=== PATIENT | female | born 1945 | race Caucasian/White ===

== ENCOUNTER 2017-02-08 19:55 | Emergency (ER) | payer MEDICARE, BC ==
[~2017-02-08] VITALS: Ht 165.1 cm; Wt 77.1 kg
[~2017-02-08 19:55] MED LIST: ASPI81TA2 PO; ATOR10TA PO; DULO60CA63 PO; Docusate Sodium PO; FERR325T28 PO; GABA300C PO; HYDR-3652 PO; LAMO100T2 PO; LISI40TA4 PO; MV,C400T2 PO; OMEP20CA10 PO; ROPI0.5T2 PO; ROPI4TAB4 PO
--- NOTE | 2017-02-08 20:10 | NUR ---
To bed 8 a 71 yo female bibself with c/o left foot pain/ swelling x 1 day. Per patient pain with prickling sensation is at 10/10, aggravated with ambulation, denies trauma. Gowned patient. Awaiting for er md lambert.
--- NOTE | 2017-02-08 21:03 | NUR ---
followed up with radiology for [facility].
--- NOTE | 2017-02-08 22:01 | NUR ---
dPatient discharged to home in stable condition. Written and verbal after care instructions given. Patient verbalizes understanding of instruction. No further complaints. Patient requested to be wheeled to waiting room as her friend is coming to pick her up.
[2017-02-08 22:02] VITALS: BP 146/68
== END 2017-02-08 22:03 | disposition home or self-care (01) ==
LOC: ER 19:57
DX: L03.116 Cellulitis of left lower limb (principal); I42.9 Cardiomyopathy, unspecified; I10 Essential (primary) hypertension; G91.9 Hydrocephalus, unspecified; M79.89 Other specified soft tissue disorders; Z79.82 Long term (current) use of aspirin; Z88.0 Allergy status to penicillin; Z88.2 Allergy status to sulfonamides
CPT/HCPCS: 73630-TC; 93971-TC; A4606; Z7610

== ENCOUNTER 2017-02-12 14:02 | Emergency (ER) | payer MEDICARE, BC ==
[~2017-02-12] VITALS: Ht 165.1 cm; Wt 77.1 kg
--- NOTE | 2017-02-12 14:09 | NUR ---
bIB self for worsening ble edema and redness, patient was started on atb last . However, per patient's observation, its not gettiing any better. Patient unable to bear weight on left foot due to pain,. Skin is warm to touch and non diaphoretic. Patient afebrile;, Will cont to monitor
--- NOTE | 2017-02-12 14:27 | NUR ---
MD Zhu at
[2017-02-12 14:52] LABS: BASOPHILS % (AUTO) 0.2 % (0.0-2.0); EOSINOPHILS # (AUTO) 0.2 /CMM (0.0-0.7); EOSINOPHILS % (AUTO) 2.7 % (0.0-6.0); HEMATOCRIT 36 % (33-45); HEMOGLOBIN 12.2 g/dL (11.5-14.8); LYMPHOCYTES # (AUTO) 1.5 /CMM (0.8-4.8); LYMPHOCYTES % (AUTO) 21.9 % (20.0-44.0); MEAN CORPUSCULAR HEMOGLOBIN 29 PG (26.0-33.0); MEAN CORPUSCULAR HGB CONC 34 g/dl (31.0-36.0); MEAN CORPUSCULAR VOLUME 85 fL (82-100); MONOCYTES # (AUTO) 0.5 /CMM (0.1-1.30); MONOCYTES % (AUTO) 7.3 % (2.0-12.0); NEUTROPHILS # (AUTO) 4.6 /CMM (1.8-8.9); NEUTROPHILS % (AUTO) 67.9 % (43.0-81.0); PLATELET COUNT (AUTO) 272 /CMM (150-450); RDW COEFFICIENT OF VARIATION 14.5 (11.5-15.0); RED BLOOD CELL COUNT(AUTO) 4.27 MIL/uL (4.0-5.2); WHITE BLOOD COUNT (AUTO) 6.8 K/uL (4.3-11.0)
--- NOTE | 2017-02-12 14:55 | NUR ---
CALLED RT FOR BREATHING TREATMENT
[2017-02-12] MEDS ORDERED: ALBUTEROL FS 2.5 MG/3 ML VIAL.NEB ONE (14:56)
[2017-02-12 14:59] LABS: ALBUMIN 3.5 g/dL (3.4-5.0); BILIRUBIN,DIRECT 0.1 mg/dL (0.0-0.2); BILIRUBIN,TOTAL 0.3 mg/dL (0.2-1.0); CALCIUM, SERUM 9.4 mg/dL (8.5-10.1); POTASSIUM 3.4 mmol/L (3.5-5.1); TOTAL PROTEIN, SERUM 6.9 g/dL (6.4-8.2)
[2017-02-12] MEDS ORDERED: predniSONE 20 MG TABLET ONE (14:59)
[2017-02-12] MEDS ORDERED: ALBUTEROL FS 2.5 MG/3 ML VIAL.NEB NEB ONE (15:00)
[2017-02-12] MEDS ORDERED: predniSONE 20 MG TABLET PO ONE (15:00)
--- NOTE | 2017-02-12 16:41 | NUR ---
Patient discharged to home in stable condition. Written and verbal after care instructions given. Patient verbalizes understanding of instruction.
[2017-02-12 16:47] VITALS: BP 145/75
== END 2017-02-12 16:47 | disposition home or self-care (01) ==
LOC: ER 14:04
DX: R60.0 Localized edema (principal); M79.672 Pain in left foot; I10 Essential (primary) hypertension; I42.9 Cardiomyopathy, unspecified; G91.9 Hydrocephalus, unspecified; Z88.0 Allergy status to penicillin; Z88.2 Allergy status to sulfonamides; Z79.82 Long term (current) use of aspirin
CPT/HCPCS: 36415; 71010; 80048; 80076; 84550; 85025; 94640; 99285; A4606; J7512; Z7610

== ENCOUNTER 2017-10-20 08:23 | Emergency (ER) | payer MEDICARE, BC ==
[~2017-10-20] VITALS: Ht 160 cm; Wt 74.8 kg
[2017-10-20 08:51] VITALS: BP 131/60
[2017-10-20] MEDS ORDERED: TRAMADOL HCL 50 MG TABLET PO ONE (09:00)
[2017-10-20] MEDS ORDERED: TRAMADOL HCL 50 MG TABLET ONE (09:01)
== END 2017-10-20 10:38 | disposition home or self-care (01) ==
LOC: ER 08:25
DX: M79.671 Pain in right foot (principal); I10 Essential (primary) hypertension; Z88.0 Allergy status to penicillin; Z88.2 Allergy status to sulfonamides; Z79.82 Long term (current) use of aspirin
CPT/HCPCS: 73610-TC; 73630-TC; A4606; Z7610

== ENCOUNTER 2018-12-30 17:28 | Emergency (ER) | payer MEDICARE, BC ==
[~2018-12-30 17:28] MED LIST changes: +ASPI-1169 PO; -ASPI81TA2 PO; -HYDR-3652 PO; +HYDR-4303 PO; -ROPI4TAB4 PO; +ROPI4TAB6 PO
--- NOTE | 2018-12-30 18:57 | NUR ---
called for triage not in the room.
--- NOTE | 2018-12-30 19:13 | NUR ---
called for triage not in the waiting room.
[2019-02-12] MEDS ORDERED: METO25TA20 PO (16:35)
== END 2018-12-30 19:20 | disposition left against medical advice (07) ==
LOC: ER 17:35
DX: Z53.21 Procedure and treatment not carried out due to patient leaving prior to being seen by health care provider (principal)

== ENCOUNTER 2019-01-22 13:43 | Emergency (ER) | payer MEDICARE, BC ==
[~2019-01-22] VITALS: Ht 165.1 cm; Wt 74.8 kg
[2019-01-22 13:43] VITALS: BP 161/114
[2019-01-22] MEDS ORDERED: KETOROLAC TROMETHAMINE INJ 30 MG/ML VIAL ONE (14:18)
[2019-01-22] MEDS ORDERED: LIDOCAINE VISCOUS 2% UD 15 ML UDC ONE (14:18)
[2019-01-22] MEDS ORDERED: KETOROLAC TROMETHAMINE INJ 60 MG/2 ML VIAL IM ONE (14:30)
[2019-01-22] MEDS ORDERED: LIDOCAINE VISCOUS 2% UD 15 ML UDC MM ONE (14:30)
--- NOTE | 2019-01-22 15:55 | NUR ---
Patient discharged to home in stable condition. Written and verbal after care instructions given. Patient verbalizes understanding of instruction.
[2019-02-12] MEDS ORDERED: METO25TA20 PO (16:35)
== END 2019-01-22 15:56 | disposition home or self-care (01) ==
LOC: ER 13:48
DX: K14.0 Glossitis (principal); G25.81 Restless legs syndrome; F31.9 Bipolar disorder, unspecified; G91.9 Hydrocephalus, unspecified; Z98.890 Other specified postprocedural states; Z88.0 Allergy status to penicillin; Z88.2 Allergy status to sulfonamides; Z79.82 Long term (current) use of aspirin
CPT/HCPCS: 96372; 99283; A4606; J1885

== ENCOUNTER 2019-02-10 16:09 | Inpatient (IN) | payer MEDICARE, BC ==
[~2019-02-10] VITALS: Ht 165.1 cm; Wt 75.0 kg
--- NOTE | 2019-02-10 16:27 | NUR ---
C/O CP 1 HOUR PRIOR ARRIVAL, "FEELS LIKE SOMEONE SITTING ON MY CHEST". PAIN FELT ON MOVEMENT, FEELS OK WITH SITTING STILL. SKIN INTACT, NO ACUTE DISTRESS NOTED. STATES HAVING SOME SOB, BUT SATTING AT 98%. HOOKED TO MONITOR, READY FOR EVAL.
[2019-02-10] MEDS ORDERED: MORPHINE SULFATE INJ 4 MG/ML DISP.SYRIN ONE (16:42)
[2019-02-10] MEDS ORDERED: NITROGLYCERIN 0.4 MG/TAB BOTTLE ONE (16:42)
[2019-02-10] MEDS ORDERED: ONDANSETRON HCL/PF 4 MG/2 ML VIAL ONE (16:42)
[2019-02-10] MEDS ORDERED: ASPIRIN 81 MG TAB.CHEW ONE (16:43)
[2019-02-10 16:50] LABS: BASOPHILS # (AUTO) 0.1 /CMM (0.0-0.2); BASOPHILS % (AUTO) 0.6 % (0.0-2.0); EOSINOPHILS % (AUTO) 1.4 % (0.0-6.0); HEMATOCRIT 42 % (33-45); HEMOGLOBIN 13.9 g/dL (11.5-14.8); LYMPHOCYTES # (AUTO) 2.1 /CMM (0.8-4.8); MEAN CORPUSCULAR HGB CONC 34 g/dl (31.0-36.0); MEAN CORPUSCULAR VOLUME 95 fL (82-100); MONOCYTES # (AUTO) 0.7 /CMM (0.1-1.30); MONOCYTES % (AUTO) 7.7 % (2.0-12.0); NEUTROPHILS # (AUTO) 5.6 /CMM (1.8-8.9); NEUTROPHILS % (AUTO) 65.3 % (43.0-81.0); PLATELET COUNT (AUTO) 317 /CMM (150-450); RED BLOOD CELL COUNT(AUTO) 4.36 MIL/uL (4.0-5.2); WHITE BLOOD COUNT (AUTO) 8.6 K/uL (4.3-11.0)
[2019-02-10 16:59] LABS: CALCIUM, SERUM 10.1 mg/dL (8.5-10.1); CARBON DIOXIDE 30 mmol/L (21-32); CHLORIDE 103 mmol/L (98-107); GLUCOSE 99 mg/dL (74-106); SODIUM SERUM 140 mmol/L (136-145); UREA NITROGEN, BLOOD 27 mg/dL (7-18)
[2019-02-10] MEDS ORDERED: NITROGLYCERIN 0.4 MG/TAB BOTTLE SL ONE (17:00)
[2019-02-10] MEDS ORDERED: MORPHINE SULFATE INJ 2 MG/ML DISP.SYRIN IV ONE (17:00)
[2019-02-10] MEDS ORDERED: ONDANSETRON HCL/PF 4 MG/2 ML VIAL IVP ONE (17:00)
[2019-02-10] MEDS ORDERED: ASPIRIN 81 MG TAB.CHEW PO ONE (17:00)
--- NOTE | 2019-02-10 17:43 | NUR ---
CALLED NURSING SUP. FOR TELE BED
--- NOTE | 2019-02-10 18:14 | NUR ---
Patient is resting comfortably in bed, NO COMPLAINTS AT THIS TIME. Easily aroused. VSS. WILL CONT TO MONITOR.
[2019-02-10] MEDS ORDERED: IV NS 0.9% 1,000 ML IV PRN (18:20)
[2019-02-10] MEDS ORDERED: MAGNESIUM HYDROXIDE 30 ML UDC PO PRN (18:30)
[2019-02-10] MEDS ORDERED: ONDANSETRON HCL/PF 4 MG/2 ML VIAL IVP PRN (18:30)
[2019-02-10] MEDS ORDERED: Z GUARD REMEDY 2 OZ OINT TP PRN (18:30)
[2019-02-10] MEDS ORDERED: ACETAMINOPHEN 325 MG TABLET PO PRN (18:30)
[2019-02-10] MEDS ORDERED: HYDROCODONE/APAP 5/325MG 1 EACH TABLET PO PRN (18:30)
--- NOTE | 2019-02-10 18:55 | NUR ---
REPORT GIVEN TO MARIAH FOR 116-2 TELE
--- NOTE | 2019-02-10 19:13 | NUR ---
[facility]
[2019-02-10 20:00] VITALS: BP 137/88
[2019-02-10] MEDS: ENOXAPARIN SODIUM 40 MG/0.4 ML DISP.SYRIN SQ SCH (20:00)
[2019-02-10] MEDS ORDERED: DOCU100C36 PO (20:08)
[2019-02-10] MEDS ORDERED: SENN-168 PO (20:08)
[2019-02-10] MEDS ORDERED: POTA-10 PO (20:08)
[2019-02-10] MEDS ORDERED: MULT-1160 PO (20:08)
[2019-02-10] MEDS ORDERED: BENZ200C53 PO (20:08)
[2019-02-10] MEDS: ropiniROLE 0.5 MG TABLET PO SCH (20:42)
[2019-02-10] MEDS: GABAPENTIN 300 MG CAPSULE PO SCH (20:42)
[2019-02-10] MEDS: LamoTRIgine 100 MG TABLET PO SCH (20:42)
[2019-02-10] MEDS: DOCUSATE SODIUM 100 MG CAPSULE PO SCH (21:06)
[2019-02-10] MEDS: ATORVASTATIN 10 MG TABLET PO SCH (21:06)
[2019-02-10] MEDS: SENNOSIDES 8.6 MG TABLET PO SCH (21:06)
[2019-02-10] MEDS: MAG HYDROX/AL HYDROX/SIMETH 30 ML UDC PO PRN (21:35)
[2019-02-10] MEDS ORDERED: ropiniROLE 0.5 MG TABLET PO SCH (22:00)
[2019-02-11] VITALS: BP 140/74
[2019-02-11 04:00] VITALS: BP 139/77
[2019-02-11 06:21] LABS: CALCIUM, SERUM 9.2 mg/dL (8.5-10.1); CARBON DIOXIDE 30 mmol/L (21-32); CHLORIDE 107 mmol/L (98-107); CHOLESTEROL 204 mg/dL (<200); GLUCOSE 103 mg/dL (74-106); HDL CHOLESTEROL 66 mg/dL (40-60); LDL 121 mg/dL (0-99); MAGNESIUM 2.4 mg/dL (1.8-2.4); PHOSPHORUS 4.2 mg/dL (2.5-4.9); POTASSIUM 4.3 mmol/L (3.5-5.1); SODIUM SERUM 143 mmol/L (136-145); THYROID STIMULATING HORMONE 2.194 uIU/mL (0.358-3.74); TRIGLYCERIDES 103 mg/dL (30-150); UREA NITROGEN, BLOOD 29 mg/dL (7-18)
[2019-02-11 07:11] LABS: BASOPHILS % (AUTO) 0.5 % (0.0-2.0); HEMATOCRIT 39 % (33-45); HEMOGLOBIN 13.1 g/dL (11.5-14.8); LYMPHOCYTES # (AUTO) 1.9 /CMM (0.8-4.8); LYMPHOCYTES % (AUTO) 34.3 % (20.0-44.0); MEAN CORPUSCULAR HGB CONC 34 g/dl (31.0-36.0); MEAN CORPUSCULAR VOLUME 96 fL (82-100); MONOCYTES # (AUTO) 0.5 /CMM (0.1-1.30); MONOCYTES % (AUTO) 8.7 % (2.0-12.0); NEUTROPHILS # (AUTO) 2.9 /CMM (1.8-8.9); NEUTROPHILS % (AUTO) 53.5 % (43.0-81.0); PLATELET COUNT (AUTO) 284 /CMM (150-450); RED BLOOD CELL COUNT(AUTO) 4.06 MIL/uL (4.0-5.2); WHITE BLOOD COUNT (AUTO) 5.4 K/uL (4.3-11.0)
--- NOTE | 2019-02-11 07:20 | NUR ---
RN OPENING NOTES RECEIVED PATIENT IN BED AWAKE AND ALERT. CAME IN YESTERDAY DUE TO CHEST PAIN. NO COMPLAINS OF ANY PAIN AND SOB AT THIS TIME. ON TELE MONITOR SINUS RHYTHM. HAS A BEDSIDE COMMODE, NEEDS ASSISTANCE. HAS A LEFT AC #20 WITH NS RUNNING AT 50 ML/HR. PER NOC SHIFT NURSE, PATIENT HAS A CARDIO CONSULT WITH DR. ARAIZA. BED LOCKED AND IN LOW POSITION. CALL LIGHT WITHIN REACH. WILL CONTINUE TO MONITOR
[2019-02-11] MEDS ORDERED: PANTOPRAZOLE 40 MG TABLET.DR PO SCH (07:30)
[2019-02-11 08:00] VITALS: BP 128/78
[2019-02-11] MEDS: PANTOPRAZOLE 40 MG TABLET.DR PO SCH ×2 (08:23→16:27)
[2019-02-11] MEDS: ASPIRIN 325 MG TABLET PO SCH (08:23)
[2019-02-11] MEDS: LamoTRIgine 100 MG TABLET PO SCH ×2 (08:23→16:27)
[2019-02-11] MEDS: LISINOPRIL (20MG) 20 MG TABLET PO SCH (08:24)
[2019-02-11] MEDS: FERROUS SULFATE (325 MG) 325 MG/TAB TABLET PO SCH (08:24)
[2019-02-11] MEDS: DULOXETINE HCL 30 MG CAPSULE.DR PO SCH (08:24)
[2019-02-11] MEDS: GABAPENTIN 300 MG CAPSULE PO SCH ×4 (08:24→21:27)
[2019-02-11] MEDS: ropiniROLE 0.5 MG TABLET PO SCH ×4 (08:25→21:27)
--- NOTE | 2019-02-11 08:45 | NUR ---
WOUND CARE CONSULT: PT PRESENTS WITH INTACT SKIN, SOME DRY ABRASIONS AND SCRATCHES, PRESENT ON ADMISSION. PT IS CONTINENT AND INDEPENDENT WITH BED MOBILITY. PT STATES HAS HAD ITCHING UNDER HER BREASTS AND USES A CREAM AT HOME. RECOMMENDATIONS MADE FOR BREASTFOLD ITCHING AND DRY SKIN TO LEGS. DISCUSSED WITH NURSING STAFF. WILL SEE PRN. ROCHA IN AGREEMENT WITH PLAN OF CARE. CURRENT KEN SCORE IS 18. Addendum: 02/11/19 at 0848 by MIC COOPER WNDNU Amended: Links added.
[2019-02-11] MEDS ORDERED: DOCUSATE SODIUM 250 MG PO SCH (09:00)
[2019-02-11] MEDS ORDERED: ASPIRIN 81 MG TAB.CHEW PO SCH (09:00)
[2019-02-11] MEDS: MINERAL OIL/PETROLATUM,WHITE 120 GM JAR TP PRN (10:09)
[2019-02-11] MEDS: CLOTRIMAZOLE 1% 15 GM TUBE TP SCH ×2 (10:09→16:29)
[2019-02-11] MEDS: MAG HYDROX/AL HYDROX/SIMETH 30 ML UDC PO PRN (10:59)
--- NOTE | 2019-02-11 12:05 | NUR ---
RN NOTE PATIENT AWARE AND ALERT. DR OBRIEN ORDERED A CT ANGIO OF THE HEART. CONSENT ALREADY SIGNED. PATIENT REQUESTING FOR MRI OF HER MOUTH. SHE STATES THAT SHE HAS AN APPOINTMENT FOR TOMORROW FROM HER PRIMARY DOCTOR AND IF POSSIBLE TO JUST DO IT HERE. WILL LET AWARE.
[2019-02-11] MEDS: METOPROLOL TARTRATE 25 MG TABLET PO SCH ×3 (12:32→23:53)
--- NOTE | 2019-02-11 12:39 | NUR ---
RN NOTE PATIENT REFUSED TO TAKE 8 TABLETS OF HER REQUIP FROM OUR OMNICELLE. PATIENT TOOK HER OWN REQUIP FROM HER MEDICINE BOX. SHE TOOK 4 TABLETS = 4 MG. ASKED THE PATIENT IF SHE HAS HER REQUIP AND I WILL SEND IT TO PHARMACY. SHE SAID THIS IS HER LAST 4 REQUIP AND NO ONE IS AT HOME TO BRING HER HOME MEDS. PATIENT STATES THAT SHE WILL TAKE THE NEXT DOES OF REQUIP FROM THE HOSPITAL. CALLED PHARMACY AND LET THEM KNOW. UNFORTUNATELY, HOSPITAL ONLY HAS 0.5MG DOSE OF REQUIP. PATIENT MADE AWARE AND AGREED
[2019-02-11] MEDS ORDERED: CT SWABBABLE VALVE TRANS SET 1 EA INFUS.SET MC ONE (12:44)
[2019-02-11] MEDS ORDERED: METOPROLOL TARTRATE INJ 5 MG/5 ML AMPUL ONE (13:57)
--- NOTE | 2019-02-11 14:10 | NUR ---
RN NOTE PATIENT LEFT FOR CT ANGIO, PATIENT AWARE AND STABLE. CONSENT FORM SIGNED.
[2019-02-11] MEDS ORDERED: NITROGLYCERIN 0.4 MG/TAB BOTTLE SL ONE (14:30)
[2019-02-11] MEDS ORDERED: METOPROLOL TARTRATE INJ 5 MG/5 ML AMPUL IVP ONE (14:30)
[2019-02-11] MEDS ORDERED: IV NS 0.9% 500 ML IV ONE (14:30)
--- NOTE | 2019-02-11 14:44 | NUR ---
RN NOTE PATIENT CAME BACK FROM CT ANGIO, STABLE AND AWAKE AND ALERT. NO COMPLAINS
[2019-02-11 16:00] VITALS: BP 109/53
--- NOTE | 2019-02-11 18:46 | NUR ---
RN CLOSING NOTE PATIEN ON STABLE CONDITION. NO ACUTE STRESS OR ANY COMPLAINS OF CHEST PAIN OR SOB. CTA WAS DONE; JASMINE & DR OBRIEN DECIDED TO DC PATIENT TOMORROW. HAS AN ORDER OF PT EVAL TOMORROW. PATIENT AWARE SHE IS GOING TO ARU AFTER DISCHARGE. BED LOCKED AND ON LOW POSITION. CALL LIGHT WITHIN REACH. WILL ENDORSE TO NOC SHIFT RN FOR CONT OF CARE
[2019-02-11 20:00] VITALS: BP 103/58
--- NOTE | 2019-02-11 20:00 | NUR ---
MS HAND STONECUTTER INITIAL NOTES RECEIVED REPORT FROM AM NURSE AND SEEN PT IN BED RESTING WITH EYES CLOSED BUT AROUSE TO TOUCH. DENIES ANY PAIN OR ANY DISCOMFORT. HEPLOCK AT THIS TIME PATENT AND INTACT, NO REDNESS NOTED. ENCOURAGE HER TO USED THE CALL LIGHT IF SHE NEEDS SOME HELP. WILL CONTINUE MONITORING. PLACE CALL LIGHT AT REACH.
[2019-02-11] MEDS: ATORVASTATIN 10 MG TABLET PO SCH (21:28)
[2019-02-11] MEDS: DOCUSATE SODIUM 100 MG CAPSULE PO SCH (21:28)
[2019-02-11] MEDS: SENNOSIDES 8.6 MG TABLET PO SCH (21:28)
[2019-02-11] MEDS: ENOXAPARIN SODIUM 40 MG/0.4 ML DISP.SYRIN SQ SCH (21:30)
--- NOTE | 2019-02-11 22:00 | NUR ---
MS CELESTE NOTES ROUTINE MEDS GIVEN AND EDUCATE PT WELL AND PT UNDERSTOOD WELL. SNAKCS ALSO SERVED. KEPT HER WARM AD COMFORTABLE AT ALL TIMES. PLACE CALL LIGHT AT REACH. WILL CONTINUE MONITORING.
[2019-02-12] VITALS: BP 120/64
--- NOTE | 2019-02-12 | NUR ---
MS HAND ASSEMBLER NOTES PT SLEEPING COMFORTABLY IN BED AFTER ALL DUE MEDS GIVEN AND SNACKS SERVED. KEPT HER WARM AND COMFORTABLE AT ALL TIMES. PLACE CALL LIGHT AT REACH.
[2019-02-12 00:41] VITALS: BP 120/64
--- NOTE | 2019-02-12 03:42 | NUR ---
WELL TESTER NOTES PT REAMINS ASLEEP. NO SIGNS OF ANY ACUTE DISTRESS NOTED. KEPT HER WARM AND COMFORTABLE AT ALL TIMES. PLACE CALL LIGHT AT REACH. WILL CONTINUE MONITORING.
[2019-02-12 04:00] VITALS: BP 121/56
[2019-02-12] MEDS: METOPROLOL TARTRATE 25 MG TABLET PO SCH ×3 (05:54→18:00)
[2019-02-12 05:55] VITALS: BP 130/69
--- NOTE | 2019-02-12 07:06 | NUR ---
MS COMPUTER TYPESETTER KEYLINER CLOSING NOTES PT AWAKE AT THIS TIME WATCHING TV AT THE SAME TIME STABLE CAYETANO THE NIGHT AND SLEPT WELL. ABLE TO AMBULATE TO THE BATHROOM WITH WALKER AND STAND BY ASSISTANCE FOR SAFETY. ALL DUE MEDS GIVEN AND ALL NEEDS MET. PT AWARE THAT POSSIBLE D/C TODAY PER MD ORDER. DENIES ANY PAIN OR ANY DISCOMFORT. KEPT HER WARM AND COMFORTABLE AT ALL TIMES. PLACE CALL LIGHT AT REACH. ENDORSE TO AM NURSE FOR CONTINUITY OF CARE.
--- NOTE | 2019-02-12 07:30 | NUR ---
MS RN NOTES PATIENT IN BED ALERT ORIENTED X 4. NO ACUTE DISTRESS NOTED. BREATHING UNLABORED. NO SOB NOTED. IV ACCESS PATENT AND INTACT, NO REDNESS OR SWELLING NOTED. SAFETY MEASURES IN PLACE. CALL LIGHT WITHIN REACH. WILL CONTINUE TO MONITOR ACCORDINGLY.
[2019-02-12 08:00] VITALS: BP 130/76
[2019-02-12] MEDS: MINERAL OIL/PETROLATUM,WHITE 120 GM JAR TP PRN (09:35)
[2019-02-12] MEDS: LamoTRIgine 100 MG TABLET PO SCH ×2 (09:37→17:48)
[2019-02-12] MEDS: ropiniROLE 0.5 MG TABLET PO SCH ×3 (09:37→17:47)
[2019-02-12] MEDS: FERROUS SULFATE (325 MG) 325 MG/TAB TABLET PO SCH (09:37)
[2019-02-12] MEDS: ASPIRIN 325 MG TABLET PO SCH (09:37)
[2019-02-12] MEDS: DULOXETINE HCL 30 MG CAPSULE.DR PO SCH (09:38)
[2019-02-12] MEDS: PANTOPRAZOLE 40 MG TABLET.DR PO SCH ×2 (09:38→17:48)
[2019-02-12] MEDS: GABAPENTIN 300 MG CAPSULE PO SCH ×3 (09:38→17:48)
[2019-02-12] MEDS: LISINOPRIL (20MG) 20 MG TABLET PO SCH (09:39)
[2019-02-12] MEDS: CLOTRIMAZOLE 1% 15 GM TUBE TP SCH ×2 (09:39→17:46)
[2019-02-12 16:00] VITALS: BP_SYST 102; BP_SYST 98; BP_DIAS 62; BP_DIAS 63
[2019-02-12] MEDS ORDERED: METO25TA20 PO (16:35)
--- NOTE | 2019-02-12 18:40 | NUR ---
MS RN NOTES PATIENT DISCHARGE HOME WITH STABLE VITAL SIGNS, NO ACUTE DISTRESS NOTED. BREATHING UNLABORED. NO SOB NOTED. DISCHARGE INSTRUCTIONS GIVEN TO THE PATIENT INCLUDING FOLLOW UP APPOINTMENTS AND NEW PRESCRIPTION, VERBALIZED UNDERSTANDING. ALL BELONGINGS ACCOUNTED FOR. IV ACCESS REMOVED, NO BLEEDING ,NO REDNESS, NO SWELLING NOTED. ASSISTED TO THE LOBBY. PATIENT AMBULATORY, STEADY GAIT. ALERT ORIENTED X 4. PICKED UP VIA PRIVATE CAR IN STABLE CONDITION.
== END 2019-02-12 18:40 | disposition home or self-care (01) | DRG 206 ==
LOC: ER 16:17 → TELE1 18:48 → MEDSG1 02-11 12:59
PROVIDERS: ADMIT Registered Nurse; ATTEND Registered Nurse
DX: M94.0 Chondrocostal junction syndrome [Tietze] (principal); G91.9 Hydrocephalus, unspecified; M48.02 Spinal stenosis, cervical region; Z98.2 Presence of cerebrospinal fluid drainage device; Z86.73 Personal history of transient ischemic attack (TIA), and cerebral infarction without residual deficits; E86.0 Dehydration; E66.9 Obesity, unspecified; E78.5 Hyperlipidemia, unspecified; I10 Essential (primary) hypertension; R39.2 Extrarenal uremia; F31.9 Bipolar disorder, unspecified; H26.9 Unspecified cataract; G25.81 Restless legs syndrome; Z68.27 Body mass index [BMI] 27.0-27.9, adult; I25.84 Coronary atherosclerosis due to calcified coronary lesion; K12.1 Other forms of stomatitis; Z79.82 Long term (current) use of aspirin; Z82.49 Family history of ischemic heart disease and other diseases of the circulatory system; Z87.891 Personal history of nicotine dependence
CPT/HCPCS: 36415; 71045-TC; 75574; 80048-TC; 80061-TC; 83735-TC; 84100-TC; 84443-TC; 84484-TC; 85025-TC; 87081-TC; 93307-TC; G0378; J1650; J2270; J2405; J3490; J7030

== ENCOUNTER 2019-03-31 14:23 | Emergency (ER) | payer MEDICARE, BC ==
[~2019-03-31] VITALS: Ht 165.1 cm; Wt 82.1 kg
[~2019-03-31 14:23] MED LIST changes: -ASPI-1169 PO; +BENZ200C53 PO; +DOCU100C36 PO; -DULO60CA63 PO; +DULO60CA64 PO; -Docusate Sodium PO; +METO25TA20 PO; +MULT-1160 PO; -MV,C400T2 PO; -OMEP20CA10 PO; +OMEP20CA11 PO; +POTA-10 PO; -ROPI0.5T2 PO; +SENN-168 PO
[2019-03-31 15:55] VITALS: BP 126/75
== END 2019-03-31 16:08 | disposition home or self-care (01) ==
LOC: ER 14:23
DX: G25.81 Restless legs syndrome (principal); F41.9 Anxiety disorder, unspecified; F31.9 Bipolar disorder, unspecified; Z98.890 Other specified postprocedural states; Z88.0 Allergy status to penicillin; Z88.2 Allergy status to sulfonamides; Z79.899 Other long term (current) drug therapy

== ENCOUNTER 2019-10-01 18:37 | Emergency (ER) | payer MEDICARE, BC ==
[~2019-10-01] VITALS: Ht 167.6 cm; Wt 73.9 kg
[2019-10-01 19:10] VITALS: BP 207/94
== END 2019-10-01 20:50 | disposition home or self-care (01) ==
LOC: ER 18:38
DX: M54.5 Low back pain (principal); F31.9 Bipolar disorder, unspecified; Z60.2 Problems related to living alone; Z98.890 Other specified postprocedural states; Z88.0 Allergy status to penicillin; Z88.2 Allergy status to sulfonamides; Z79.899 Other long term (current) drug therapy
CPT/HCPCS: 72100-TC

== ENCOUNTER 2020-07-06 00:09 | Emergency (ER) | payer MEDICARE, BC ==
[~2020-07-06] VITALS: Ht 165.1 cm; Wt 77.1 kg
[~2020-07-06 00:09] MED LIST changes: -OMEP20CA11 PO; +OMEP20CA15 PO; -SENN-168 PO; +SENN-261 PO
[2020-07-06 00:12] VITALS: BP 121/78
--- NOTE | 2020-07-06 00:42 | NUR ---
RADIOLOGY AT BEDSIDE
== END 2020-07-06 01:29 | disposition home or self-care (01) ==
LOC: ER 00:14
DX: R07.81 Pleurodynia (principal); F31.9 Bipolar disorder, unspecified; Z98.890 Other specified postprocedural states; Z88.0 Allergy status to penicillin; Z88.2 Allergy status to sulfonamides; Z79.899 Other long term (current) drug therapy
CPT/HCPCS: 71100-TC

== ENCOUNTER 2021-01-12 12:33 | Emergency (ER) | payer MEDICARE, BC ==
[~2021-01-12] VITALS: Ht 165.1 cm; Wt 73.5 kg
[~2021-01-12 12:33] MED LIST changes: +LISI40TA13 PO; -LISI40TA4 PO
--- NOTE | 2021-01-12 12:40 | NUR ---
pt arrved from work for bilat lower extremity swelling-pt aao X 3, ANVIK, uses a cane
--- NOTE | 2021-01-12 12:50 | NUR ---
pt assessment done-lower legs cool/red with +2 edema left greater than Right-dooley with ease bilat PD pulses felt by hand and peripheral with doppler-pt does not c/o pain-monitoring
[2021-01-12] MEDS ORDERED: FURO40TA5 PO (13:09)
[2021-01-12] MEDS ORDERED: POTA10TA17 PO (13:09)
[2021-01-12] MEDS ORDERED: RALO60TA14 PO (13:09)
[2021-01-12] MEDS ORDERED: TIZA4TAB5 PO (13:09)
--- NOTE | 2021-01-12 13:13 | NUR ---
lab at bedside to draw blood
[2021-01-12 13:23] LABS: BASOPHILS # (AUTO) 0.1 /CMM (0.0-0.2); BASOPHILS % (AUTO) 0.8 % (0.0-2.0); EOSINOPHILS % (AUTO) 2.4 % (0.0-6.0); HEMATOCRIT 39 % (33-45); HEMOGLOBIN 13.2 g/dL (11.5-14.8); LYMPHOCYTES # (AUTO) 1.6 /CMM (0.8-4.8); LYMPHOCYTES % (AUTO) 25.7 % (20.0-44.0); MEAN CORPUSCULAR HGB CONC 34 g/dl (31.0-36.0); MEAN CORPUSCULAR VOLUME 94 fL (82-100); MONOCYTES # (AUTO) 0.5 /CMM (0.1-1.30); MONOCYTES % (AUTO) 7.8 % (2.0-12.0); NEUTROPHILS # (AUTO) 3.8 /CMM (1.8-8.9); NEUTROPHILS % (AUTO) 63.3 % (43.0-81.0); PLATELET COUNT (AUTO) 265 /CMM (150-450); RED BLOOD CELL COUNT(AUTO) 4.11 MIL/uL (4.0-5.2); WHITE BLOOD COUNT (AUTO) 6.1 K/uL (4.3-11.0)
[2021-01-12 13:42] LABS: CALCIUM, SERUM 8.3 mg/dL (8.5-10.1); CREATININE 1.1 mg/dL (0.6-1.3)
[2021-01-12] MEDS ORDERED: HYDR25TA4 PO (13:49)
[2021-01-12 15:28] VITALS: BP 129/69
== END 2021-01-12 15:29 | disposition home or self-care (01) ==
LOC: ER 12:36
DX: R60.0 Localized edema (principal); F31.9 Bipolar disorder, unspecified; Z98.890 Other specified postprocedural states; Z88.0 Allergy status to penicillin; Z88.2 Allergy status to sulfonamides; Z60.2 Problems related to living alone; Z79.899 Other long term (current) drug therapy
CPT/HCPCS: 36415; 71045-TC; 80048-TC; 85025-TC

== ENCOUNTER 2022-03-19 22:16 | Inpatient (IN) | payer MEDICARE, BC ==
[~2022-03-19] VITALS: Ht 165.1 cm; Wt 73.9 kg
[~2022-03-19 22:16] MED LIST changes: +FURO40TA5 PO; -HYDR-4303 PO; +HYDR25TA4 PO; -LISI40TA13 PO; -METO25TA20 PO; -POTA-10 PO; +POTA10TA17 PO; +RALO60TA14 PO; +TIZA4TAB5 PO
--- NOTE | 2022-03-19 22:25 | NUR ---
MYNOR 80 FROM HOME FOR R SIDED HEAD INJURY S/P FALL. PATIENT ALERT AND ORIENTED X3. AMBULATORY BUT BROUGHT IN BY STRETCHER. PATIENT IN BED 11 ON MONITOR AWAITING MD NICHOLS.
--- NOTE | 2022-03-19 22:35 | NUR ---
BLOOD COLLEECTED AND SENT TO LAB
--- NOTE | 2022-03-19 22:35 | NUR ---
COVID SWAB DONE AND SENT TO LAB
--- NOTE | 2022-03-19 22:57 | NUR ---
MRSA SWAB COLLECTED AND SENT TO LAB. PATIENT'S BELONGINGS LIST DONE.
[2022-03-19] MEDS ORDERED: IV NS 0.9% 500 ML BAG IV ONE (23:00)
--- NOTE | 2022-03-19 23:01 | NUR ---
PT GOING TO RADIOLOGY
[2022-03-19 23:03] LABS: BASOPHILS % (AUTO) 0.7 % (0.0-2.0); EOSINOPHILS % (AUTO) 2.7 % (0.0-6.0); HEMATOCRIT 39 % (33-45); HEMOGLOBIN 13.2 g/dL (11.5-14.8); LYMPHOCYTES # (AUTO) 2.1 K/uL (0.8-4.8); LYMPHOCYTES % (AUTO) 28.2 % (20.0-44.0); MEAN CORPUSCULAR HGB CONC 34 g/dl (31.0-36.0); MEAN CORPUSCULAR VOLUME 95 fL (82-100); MONOCYTES # (AUTO) 0.6 K/uL (0.1-1.30); MONOCYTES % (AUTO) 7.9 % (2.0-12.0); NEUTROPHILS # (AUTO) 4.5 K/uL (1.8-8.9); NEUTROPHILS % (AUTO) 60.5 % (43.0-81.0); PLATELET COUNT (AUTO) 247 K/uL (150-450); RED BLOOD CELL COUNT(AUTO) 4.16 MIL/uL (4.0-5.2); WHITE BLOOD COUNT (AUTO) 7.4 K/uL (4.3-11.0)
[2022-03-19 23:12] LABS: CALCIUM, SERUM 9.1 mg/dL (8.5-10.1); CARBON DIOXIDE 29 mmol/L (21-32); CHLORIDE 104 mmol/L (98-107); CREATININE 1.1 mg/dL (0.6-1.3); GLUCOSE 122 mg/dL (74-106); POTASSIUM 3.7 mmol/L (3.5-5.1); SODIUM SERUM 141 mmol/L (136-145); UREA NITROGEN, BLOOD 19 mg/dL (7-18)
[2022-03-19 23:16] LABS: ALANINE AMINOTRANSFERASE 34 U/L (12-78); ALBUMIN 3.6 g/dL (3.4-5.0); ALKALINE PHOSPHATASE 92 U/L (46-116); ASPARTATE AMINOTRANSFERASE 22 U/L (15-37); BILIRUBIN,TOTAL 0.1 mg/dL (0.2-1.0); TOTAL PROTEIN, SERUM 6.5 g/dL (6.4-8.2)
--- NOTE | 2022-03-20 00:20 | NUR ---
KARIS DNP AT PT'S BEDSIDE
[2022-03-20] MEDS ORDERED: LORAZEPAM INJ 2 MG/ML VIAL IV PRN (00:30)
[2022-03-20] MEDS ORDERED: MORPHINE SULFATE INJ 2 MG/ML DISP.SYRIN IV PRN (00:30)
[2022-03-20] MEDS ORDERED: MAG HYDROX/AL HYDROX/SIMETH 30 ML UDC PO PRN (00:30)
[2022-03-20] MEDS ORDERED: Z GUARD REMEDY 4 OZ OINT TP PRN (00:30)
[2022-03-20] MEDS ORDERED: ACETAMINOPHEN 325 MG TABLET PO PRN (00:30)
[2022-03-20] MEDS ORDERED: MAGNESIUM HYDROXIDE 30 ML UDC PO PRN (00:30)
[2022-03-20] MEDS ORDERED: HYDROCODONE/APAP 5/325MG TABLET PO PRN (00:30)
[2022-03-20] MEDS ORDERED: TEMAZEPAM 15 MG CAPSULE PO PRN (00:30)
[2022-03-20] MEDS ORDERED: ONDANSETRON HCL/PF 4 MG/2 ML VIAL IVP PRN (00:30)
--- NOTE | 2022-03-20 00:44 | NUR ---
REPORT GIVEN TO CAIO SALVADOR
--- NOTE | 2022-03-20 02:15 | NUR ---
PT TRANSERRED, VVS, UNDER ACLS.
[2022-03-20] MEDS: IV NS 0.9% 1,000 ML IV PRN ×2 (02:19→21:03)
[2022-03-20 02:30] VITALS: BP 148/84
--- NOTE | 2022-03-20 02:30 | NUR ---
TELE/RN ADMITTING NOTE RECEIVED REPORT FROM J2EE DEVELOPER SHAVONNE. PATIENT ARRIVED TO UNIT VIA GURNEY AND 2 STAFF MEMBERS. PATIENT IS BEING ADMITTED WITH DX OF SYNCOPE AND POSSIBLE NEW ONSET SEIZURES. PATIENT IS ALERT AND ORIENTED X 4. ABLE TO MAKE NEEDS KNOWN. DENIES PAIN AT THIS TIME. CONTINUES ON ROOM AIR WITH NO S/SX OF RESPIRATORY DISTRESS NOTED. IV ACCESS TO LEFT WRIST #20G INTACT AND PATENT. SKIN CHECK PERFORMED ON ADMISSION WITH LACERATION NOTED TO RIGHT SIDE OF HEAD. DRIED BLOOD IN HAIR. NO NEW DRAINAGE NOTED. PATIENT ALSO HAS SCRATCH TO RIGHT THIGH. PICTURES TAKEN OF WOUNDS AND PLACED IN CHART. WOUND CONSULT ORDERED. NOTED PATIENT TO BE RESTLESS WITH SOME TWITCHING MOVEMENTS. PATIENT STATES THIS IS HER BASELINE. PATIENT WILL HAVE NEURO CONSULT IN AM. CONTINUES ON SEIZURE PRECAUTIONS. ALL BELONGINGS ACCOUNTED FOR WITH PATIENT SIGNING BELONGING LIST. PATIENT ORIENTED TO ROOM CALL LIGHT AND UNIT. CALL LIGHT WITHIN REACH. ASPIRATION, FALL AND SAFETY PRECAUTIONS MAINTAINED. WILL CONTINUE TO MONITOR.
--- NOTE | 2022-03-20 02:45 | NUR ---
TELE/RN NOTE PATIENT ENDORSES ANXIETY AND AGITATION. REQUESTING MEDICATION. ADMINISTERED PRN ATIVAN PER MD ORDERS. PATIENT TELE MONITOR CURRENTLY READING SR HR 86.
[2022-03-20 04:00] VITALS: BP 151/95
--- NOTE | 2022-03-20 06:40 | NUR ---
TELE/RN CLOSING NOTE PATIENT CURRENTLY RESTING IN BED. AWAKE, ALERT AND ORIENTED X 4. ABLE TO MAKE NEEDS KNOWN. DENIES PAIN AT THIS TIME. CONTINUES ON ROOM AIR WITH NO S/SX OF RESPIRATORY DISTRESS NOTED. IV ACCESS TO LEFT WRIST #20G INTACT AND PATENT. CONTINUES ON IVF NS @ 75ML/HR. CONTINUES ON SEIZURE PRECAUTIONS. CALL LIGHT WITHIN REACH. ASPIRATION, FALL AND SAFETY PRECAUTIONS MAINTAINED. WILL ENDORSE PLAN OF CARE TO ONCOMING SHIFT.
--- NOTE | 2022-03-20 07:30 | NUR ---
TELE/RN OPENING NOTES RECEIVED PATIENT AWAKE, ALERT AND ORIENTED X 4. ABLE TO MAKE NEEDS KNOWN. DENIES PAIN AND DISCOMFORT AT THIS TIME. ON ROOM AIR WITH NO S/SX OF RESPIRATORY DISTRESS AND NO SOB NOTED. IV ACCESS TO LEFT WRIST #20G INTACT AND PATENT. CONTINUES ON IVF NS @ 75ML/HR. CONTINUES ON SEIZURE PRECAUTIONS. SAFETY MEASURES IMPLEMENTED: CALL LIGHT WITHIN REACH, BED ON LOW POSITION. ASPIRATION, FALL AND SAFETY PRECAUTIONS MAINTAINED. WILL CONTINUE TO MONITOR FOR CHRIS.
[2022-03-20 08:16] VITALS: BP 138/91
[2022-03-20] MEDS ORDERED: DULOXETINE HCL 20 MG CAPSULE.DR PO SCH (09:00)
[2022-03-20] MEDS ORDERED: BRIM5DRO5 EACHEYE (09:49)
[2022-03-20] MEDS ORDERED: ALBU2.5V38 IH (09:49)
[2022-03-20] MEDS ORDERED: ASCO-340 PO (09:49)
[2022-03-20] MEDS ORDERED: SPIR25TA6 PO (09:49)
[2022-03-20] MEDS ORDERED: BISA5TAB10 PO (09:49)
[2022-03-20] MEDS ORDERED: ALBU8.5H8 IH (09:49)
[2022-03-20] MEDS ORDERED: LATA2.5D15 EACHEYE (09:49)
[2022-03-20] MEDS: DULOXETINE HCL 30 MG CAPSULE.DR PO SCH (09:50)
[2022-03-20] MEDS: LamoTRIgine 100 MG TABLET PO SCH ×2 (09:50→21:03)
[2022-03-20] MEDS: ropiniROLE 0.5 MG TABLET PO SCH ×3 (09:50→17:47)
[2022-03-20] MEDS: GABAPENTIN 400 MG CAPSULE PO SCH ×2 (09:50→13:03)
[2022-03-20] MEDS: PANTOPRAZOLE 40 MG TABLET.DR PO SCH (09:51)
--- NOTE | 2022-03-20 10:40 | NUR ---
dr. patten informed to look at updated home med list.
[2022-03-20] MEDS: ENOXAPARIN SODIUM 40 MG/0.4 ML DISP.SYRIN SQ SCH (13:08)
[2022-03-20 16:14] VITALS: BP 124/70
--- NOTE | 2022-03-20 19:15 | NUR ---
TELE/RN OPENING NOTES PATIENT AWAKE, ALERT AND ORIENTED X 4. ABLE TO MAKE NEEDS KNOWN. DENIES PAIN AND DISCOMFORT AT THIS TIME. ON ROOM AIR WITH NO S/SX OF RESPIRATORY DISTRESS AND NO SOB NOTED. IV ACCESS TO LEFT WRIST #20G INTACT AND PATENT. CONTINUES ON IVF NS @ 75ML/HR. CONTINUES ON SEIZURE PRECAUTIONS. SAFETY MEASURES IMPLEMENTED: CALL LIGHT WITHIN REACH, BED ON LOW POSITION. ASPIRATION, FALL AND SAFETY PRECAUTIONS MAINTAINED. WILL ENDORSE TO ONGOING SHIFT FOR CHRIS.
[2022-03-20 20:00] VITALS: BP 119/66
--- NOTE | 2022-03-20 20:01 | NUR ---
PRINTER FLOOR COVERING ASSISTANT OPENING NOTES RECEIVED PATIENT LYING IN BED AWAKE. A/O X4. NO C/O PAIN AT THIS TIME. TOLERATING ROOM AIR WELL. NO APPARENT DISTRESS NOTED. HAS LEFT WRIST IV ACCESS #20G WITH NS RUNNING AT 75 ML/HR. SAFETY MEASURES IN PLACE. WILL CONTINUE PLAN OF CARE.
--- NOTE | 2022-03-20 20:28 | NUR ---
ON TELE MONITOR READING SINUS RHYTHM WITH INTERMITTENT AVB AT 86 BPM.
[2022-03-20 21:00] VITALS: BP_SYST 114; BP_SYST 116; BP_SYST 146; BP_DIAS 65; BP_DIAS 69; BP_DIAS 70
--- NOTE | 2022-03-20 22:48 | NUR ---
EGG SORTER NOTES PATIENT REQUESTED FOR SLEEPING PILL. I OFFERED HER RESTORIL BUT SHE IS INSISTING ON HER ROPINIROLE WHICH IS SCHEDULED TID. SHE ALSO ASKED WHY SHE DOESN'T HAVE HER GABAPENTIN AND LATANOPROST. AWAITING FOR MD RESPONSE. Addendum: 03/21/22 at 0113 by April MARISSA KEARNEY PER MD, WE CAN'T GIVE EXTRA DOSE OF ROPINIROLE FOR TONIGHT. I OFFERED RESTORIL AGAIN BUT PATIENT VERBALIZED THAT SHE WILL NOT WAKE UP WITH THAT. RETURNED OPENED MEDICINE PACKET IN [employer]. TURNED OFF LIGHTS, CHANGED LINENS/GOWN AND LOWERED TV VOLUME TO MINIMIZE STIMULI AND HELP PATIENT SLEEP.
[2022-03-21] VITALS: BP 132/69
[2022-03-21 04:00] VITALS: BP 121/82
[2022-03-21 04:17] VITALS: BP 119/66
[2022-03-21 06:26] LABS: BASOPHILS % (AUTO) 0.7 % (0.0-2.0); EOSINOPHILS % (AUTO) 2.9 % (0.0-6.0); HEMATOCRIT 40 % (33-45); HEMOGLOBIN 13.2 g/dL (11.5-14.8); LYMPHOCYTES # (AUTO) 1.8 K/uL (0.8-4.8); LYMPHOCYTES % (AUTO) 35.7 % (20.0-44.0); MEAN CORPUSCULAR HGB CONC 33 g/dl (31.0-36.0); MEAN CORPUSCULAR VOLUME 95 fL (82-100); MONOCYTES # (AUTO) 0.3 K/uL (0.1-1.30); MONOCYTES % (AUTO) 6.7 % (2.0-12.0); NEUTROPHILS # (AUTO) 2.7 K/uL (1.8-8.9); PLATELET COUNT (AUTO) 252 K/uL (150-450); RED BLOOD CELL COUNT(AUTO) 4.19 MIL/uL (4.0-5.2); WHITE BLOOD COUNT (AUTO) 5.1 K/uL (4.3-11.0)
[2022-03-21 07:18] LABS: THYROID STIMULATING HORMONE 3.881 uIU/mL (0.358-3.74)
[2022-03-21 07:21] LABS: CALCIUM, SERUM 8.8 mg/dL (8.5-10.1); CARBON DIOXIDE 30 mmol/L (21-32); CHLORIDE 109 mmol/L (98-107); CREATININE 0.8 mg/dL (0.6-1.3); GLUCOSE 86 mg/dL (74-106); MAGNESIUM 2.4 mg/dL (1.8-2.4); PHOSPHORUS 2.8 mg/dL (2.5-4.9); SODIUM SERUM 143 mmol/L (136-145); UREA NITROGEN, BLOOD 15 mg/dL (7-18)
[2022-03-21] MEDS: PANTOPRAZOLE 40 MG TABLET.DR PO SCH (07:30)
--- NOTE | 2022-03-21 07:30 | NUR ---
APPRENTICE MACHINIST OUTSIDE CLOSING NOTES PATIENT SITTING ON CHAIR AWAKE. A/O X4. BREATHING EVEN AND UNLABORED, TOLERATING ROOM AIR WELL. NOT IN ACUTE DISTRESS. ON TELE MONITOR READING SINUS RHYTHM WITH 1ST DEGREE AVB AND PVC AT 79 BPM. HAS LEFT WRIST IV ACCESS #20G WITH NS RUNNING AT 75 ML/HR. INTACT, PATENT AND FLUSHING. ALL NEEDS ATTENDED. KEPT DRY AND COMFORTABLE. SAFETY MEASURES IN PLACE: BED LOW AND LOCKED, SIDE RAILS UP X3 AND PADDED, CALL LIGHT WITHIN REACH. WILL ENDORSE TO AM NURSE FOR CONTINUITY OF CARE.
--- NOTE | 2022-03-21 08:07 | NUR ---
RN OPENING NOTE PATIENT RECEIVED IN BED, AO X 4. ABLE TO RESPONDS ALL STIMULI. IN NO ACUTE DISTRESS NOTED. RESPIRATORY EVEN AND UNLABORED ON RA. SKIN IS WARM TO TOUCH, KEEP CLEAN/DRY. KEPT ELEVATED HOB FOR ENSURE AIRWAY AND ASPIRATION PRECAUTION, ALSO LOWEST POSITION OF THE BED, S/R UP X 3, BED ALARM IS ON AT ALL THE TIMES. ALL SAFETY PRECAUTION APPLIED. CALL LIGHT WITHIN REACH, WILL CONTINUE TO MONITOR.
[2022-03-21] MEDS: ropiniROLE 0.5 MG TABLET PO SCH ×3 (09:09→17:00)
[2022-03-21] MEDS: LamoTRIgine 100 MG TABLET PO SCH (09:10)
[2022-03-21] MEDS: DULOXETINE HCL 30 MG CAPSULE.DR PO SCH (09:11)
[2022-03-21] MEDS: ENOXAPARIN SODIUM 40 MG/0.4 ML DISP.SYRIN SQ SCH (13:00)
[2022-03-21 13:17] LABS: CHOLESTEROL 212 mg/dL (<200); HDL CHOLESTEROL 52 mg/dL (40-60); LDL 120 mg/dL (0-99); TRIGLYCERIDES 153 mg/dL (30-150)
[2022-03-21] MEDS ORDERED: ATOR20TA PO (13:24)
--- NOTE | 2022-03-21 14:35 | NUR ---
SS Note: Pt. Is a 77-year-old White female who demonstrates adequate insight to the reason for hospitalization. Per pt., she was brought into hospital with right-sided injury following a fall. Pt. was oriented x4, alert, and cooperative. During interview, pt. was capable of following directions and appeared groomed. Pt.s speech was at a normal rate and pt.s mood was elevated. Pt. reported no hx of mental health, substance abuse, suicidal ideation, or homicidal ideation. Pt. denies auditory hallucinations, visual hallucinations, paranoia, or delusions. SW explored pt.s living situation. Per pt., she lives alone [[id number] [facility] [address] [place] [id number]]. Pt. stated that she had multiple falls in the past. Pt. does not remember her recent fall, pt. stated that she blacked out. All pt. remembers is being on her bed and fell to the floor, causing the right-side of her head to bleed. Pt. is ambulatory but uses a walker as needed. Pt. expressed that she wants an assisted living, SW notified Case Management. Pt. has no family out here but has close friends that are supportive. Pt. does not have a caregiver and stated that she cannot take care of herself anymore. winery worker is making an APS report due to self-neglect and care provider required. Plan: SW provided available resources and pt. accepted. SW made an APS due to self-neglect. APS Intake #[id number] Resources Provided: ABUSE PREVENTION: ELDER ABUSE HOTLINE (03/06) ADULT PROTECTIVE SERVICES HOTLINE LONG-TERM CARE [facility] Region AREA ON AGING (HOTLINE) ADULT DAY HEALTH CARE CARE CENTERS: Private pay or Medi-tim funded adult day care [place] [facility] , [facility] , [facility] , [facility] Adult Day Health Care , [facility] Adult [facility] Health Care , [facility] Adult [facility] , [place] [facility] Generation Center , [place] [facility] Adult Center , [place] ALZHEIMERS DISEASE/DEMENTIA: Alzheimers Association Helpline [facility] Chapter www.alz.org/[facility] Department of Aging www.lacity.org Family Caregiver Fountain www.caregiver.org [place] Caregiver Resources Center/Family Support www.losangeuofl health - jewish hospital.org CANCER RESOURCES: [place] Cancer Society www.cancer.org Cancer Support Community www.CancerSupportVvsb.org: CancerCare www.cancercare.org [facility] Cancer Support [place] www.[facility].org AMERICAN HEALTHCARE SYSTEMS HEALTH ASSOCIATIONS: AARP www.aarp.org ALS Association (ask for Berenice) www.als.org [place] Diabetes Association www.diabetes.org [place] Heart Association www.heart.org [place] Lung Association www.lungusa.org Br[place] Parkinson Disease Association www.apdaparkinson.org Bruneian [place] , www.redcross.org Arthritis Foundation www.arthritis.org Crohns & Colitis Foundation of Bruneian www.ccfa.org/chapters/yrn National Multiple Sclerosis Society www.nationalmssociety.org Myasthenia Gravis Foundation www.myasthenia-ca.org National Stroke Association www.stroke.org CONSERVATORSHIP & GUARDIANSHIP: AARAngelica Romy Huang Legal Services Center for Health Care Rights Eldercare Information and Referral Sandblaster Paint Sprayer Foundation [facility]: [facility] Bar Referral Service [facility] Legal Services Office of the Public Guardian [place] EYESIGHT DISORDER RESOURCES: [place] Macular Degeneration Foundation [facility] www.[facility].org GRIEF AND BEREAVEMENT RESOURCES: The [place] , [facility] [place] Connection , [facility] Bereavement Center , [place] HEARING DISORDER RESOURCES: [place] Telephone Access Program Deaf and Disabled Telecommunications Program www.ddtp.[facility].ca.gov HearRx Hearing Centers ([place]) Better Hearing Systems , [place] GLAD ([facility] Agency on Deafness) V/ TTY; Disaster Director , [facility] Hearing [facility] -low income hearing aid assistance www.tgh crystal riverfoundation.org [place] Hearing Care , [place] HELP AT HOME CAREGIVER SUPPORT: In Home Support Services (Must have Medi-Tim to be eligible) *Ask for a list of agencies that provide services to assist with care in the home. Local Senior Centers also have listings of care providers. HOME SAFETY MODIFICATIONS AND EQUIPMENT: Senior centers have additional referrals. [place] Housing and Community Investment Dept. Handyworker Program (low income) or Visit http://hcidla.[facility].org/rmb-zwfove-xu for more information National Seating and Mobility and/or ; Forever Active www.foreveractivemed.JAZD Markets Stay Home Safe www.Stayhomesafe.com LIFE ALERT RESPONSE SYSTEM: Knock Knock Services 735-746-7801 www. [employer] Life Alert 647-591-1524 www.Genesant Life Station 262-728-3446 www.CartoDBation.JAZD Markets Safe Return 233-710-8074 www.alz.or/safereturn Cell Phones for Seniors www.Recroup MEALS AND FOOD PROGRAMS: [place] Meals on Wheels [phone] [place] Meals on Wheels [phone] [facility] [phone] [place] to the Homebound [phone] [place] to the Homebound [phone] [facility] to the Homebound [phone] [facility] to the Homebound [phone] [facility] Center[facility] [phone] [facility] [phone] ONE Generation [phone] [facility] [phone] Critical Access Hospital [phone] Meals on Wheels [phone] For all ages: $6.85/ meal w side. Delivered M-F from 10 am-1pm. Application and payment is done over the phone. Frozen meals available for weekends. Emergency Food Coalition [phone] [facility] [place]minster Rug Setter [phone] [facility] [phone] [facility]- Brown bag lunches [phone] [facility] [phone] MEAL/GROCERY DELIVERY PROGRAMS: Brigette Senior Gourmet Meals [phone]- [facility] [phone]- [facility] Magic Kitchen [phone] Moms Meals [phone] (ask Aguilar for Discount Select grocery stores may provide delivery. MEDICAL INSURANCE SUPPORT SERVICES: Center for Health Care Rights [phone] Health Insurance Counseling/Advocacy Programs (HICAP)-Must have Medicare. Offers counseling for Medi-Tim eligibility [phone] [facility] Axminster Rug Setter [phone] www.[facility].ca.gov Medicare 351-376-0380 www.socialsecurity.org Social Security [phone] SENIOR ACTIVITY PROGRAMS: *Contact a local senior center, adult school, recreation facility or community college for education, fitness, recreation, and social programs. Aquatic Therapy and Adapted Exercise programs through [facility] [phone] Encore at [facility] [phone] www.[facility]/encore U- Senior Friends [phone] [place] Senior Programs [phone] www.oasisnet.org Suddenly 65 www.SoSocio.com SENIOR CENTERS: [facility] [phone] [facility] [phone] [facility] [phone] [facility] [phone] [facility] [phone] [facility] [phone] [facility] [phone] [facility] [phone] One Generation, [facility] [phone] [facility] [phone] [phone] [facility] [phone] [facility] [place] [phone] TRANSPORTATION: Local [facility] Centers may have applications for transportation programs and additional resources. ACCESS Services [phone] Transportation for seniors and disabled persons 7 days a week requiring 254 hr. advance reservation. Must apply and register for program ciara eligible. CITY RIDE [phone] or [phone] Transportation for seniors and persons with ADA card/metro disabled card in the [facility]. M-F only. Must register for services. ONE GENERATION [phone] Serves 65 years + in conjunction with [employer] and Transport Brokerage ride program. Must be registered with both programs. A to B Transport [phone] Provides wheelchair/gurney van service. Adult Medical Transport [phone] Accepts [facility] with prior authorization. Care Van [phone] Provides wheelchair Transport. [facility] Wide Transportation [phone] Provides gurney service Gentle Care [phone] Gurney Transport. [facility] Town Transportation [phone] wheelchair & gurney transport [facility] Transportation [phone] wheelchair & gurney transport [place] Non-Emergency Transport [phone] wheelchair & gurney transport [facility] Living [place] [phone] Short Term Transportation primarily for adults with disabilities on social security income. Nominal fee may apply and a reservation is required. City Cab [phone] or [phone] Uber.com [facility] [phone] [place] [address] Referral Services -[phone] For additional programs & services VETERANS RESOURCES: Submissions for Aid and Attendance should be done directly to Federal VA office locatd at : [address] [address] X110 National Caregiver Support Line [phone] [facility] Field Office [phone] [place] Department of [place] Affairs [phone] Pension Information [phone]
--- NOTE | 2022-03-21 17:36 | NUR ---
PATIENT D/C TO HOME AND GIVEN DISCHARGE INSTRUCTION INCLUDE DESKTOP SUPPORT MANAGER NEW MED, AND DISCONTINUE MED. PATIENT DENIES DISCOMFORT, IN STABLE CONDITION. PATIENT LEFT FACILITY ESCORTED BY STAFF TO PRIVATE CAR.
== END 2022-03-21 17:30 | disposition home or self-care (01) | DRG 918 ==
LOC: ER 22:18 → TELE 03-20 02:03
PROVIDERS: ADMIT Nurse Practitioner Acute Care; ATTEND Nurse Practitioner Family
DX: T42.6X1A Poisoning by other antiepileptic and sedative-hypnotic drugs, accidental (unintentional), initial encounter (principal); G91.9 Hydrocephalus, unspecified; F31.9 Bipolar disorder, unspecified; G40.909 Epilepsy, unspecified, not intractable, without status epilepticus; Z86.73 Personal history of transient ischemic attack (TIA), and cerebral infarction without residual deficits; Z98.2 Presence of cerebrospinal fluid drainage device; Z20.822 Contact with and (suspected) exposure to COVID-19; Z87.891 Personal history of nicotine dependence; Z82.49 Family history of ischemic heart disease and other diseases of the circulatory system; Z79.899 Other long term (current) drug therapy; E78.5 Hyperlipidemia, unspecified; Z96.643 Presence of artificial hip joint, bilateral; G25.81 Restless legs syndrome; Z96.669 Presence of unspecified artificial ankle joint; Z88.0 Allergy status to penicillin; Z88.2 Allergy status to sulfonamides; I10 Essential (primary) hypertension; H26.9 Unspecified cataract; M19.90 Unspecified osteoarthritis, unspecified site; G89.29 Other chronic pain; M48.02 Spinal stenosis, cervical region; Z79.51 Long term (current) use of inhaled steroids; R29.6 Repeated falls; F41.9 Anxiety disorder, unspecified; W06.XXXA Fall from bed, initial encounter; R79.89 Other specified abnormal findings of blood chemistry; S01.01XA Laceration without foreign body of scalp, initial encounter; Y92.003 Bedroom of unspecified non-institutional (private) residence as the place of occurrence of the external cause; Z98.890 Other specified postprocedural states; R55 Syncope and collapse; Y92.009 Unspecified place in unspecified non-institutional (private) residence as the place of occurrence of the external cause
CPT/HCPCS: 36415; 70450-TC; 71045-TC; 80048-TC; 80061-TC; 80076-TC; 82550-TC; 83735-TC; 84100-TC; 84443-TC; 84484-TC; 85025-TC; 85730-TC; 87081-TC; 93307-TC; 93880-TC; 95819-TC; 97116-TC; 97530-TC; C9803; G0378; J1650; J2060; J7030; J7040

== ENCOUNTER 2024-03-10 16:13 | Emergency (ER) | payer MEDICARE, BC ==
[~2024-03-10] VITALS: Ht 165.1 cm; Wt 68.5 kg
[~2024-03-10 16:13] MED LIST changes: +ALBU2.5V38 IH; +ALBU8.5H8 IH; +ASCO-340 PO; -ATOR10TA PO; +ATOR20TA PO; +BISA5TAB10 PO; -DOCU100C36 PO; -FERR325T28 PO; -GABA300C PO; -HYDR25TA4 PO; +LATA2.5D15 EACHEYE; -MULT-1160 PO; -SENN-261 PO; +SPIR25TA6 PO; -TIZA4TAB5 PO
[2024-03-10] MEDS: ACETAMINOPHEN ES 500 MG TABLET PO ONE (17:30)
[2024-03-10] MEDS: CYCLOBENZAPRINE 10 MG TABLET PO ONE (17:30)
[2024-03-10] MEDS ORDERED: ACETAMINOPHEN ES 500 MG TABLET ONE (17:43)
[2024-03-10] MEDS ORDERED: CYCLOBENZAPRINE 10 MG TABLET ONE (17:44)
[2024-03-10] MEDS ORDERED: ACET-2605 PO (19:30)
[2024-03-10 19:37] VITALS: BP 128/66; TEMP 98.2; O2SAT 100
== END 2024-03-10 19:38 | disposition home or self-care (01) ==
LOC: ER 16:17
DX: M54.2 Cervicalgia (principal); R51.9 Headache, unspecified; Z88.0 Allergy status to penicillin; Z88.2 Allergy status to sulfonamides; Z60.2 Problems related to living alone; Z79.899 Other long term (current) drug therapy; V89.2XXA Person injured in unspecified motor-vehicle accident, traffic, initial encounter; Y93.89 Activity, other specified; Y92.89 Other specified places as the place of occurrence of the external cause; Y99.8 Other external cause status
CPT/HCPCS: 70450-TC; 72125-TC

== ENCOUNTER 2024-04-27 16:44 | Emergency (ER) | payer MEDICARE, BC ==
[~2024-04-27] VITALS: Ht 165.1 cm; Wt 62.1 kg
[~2024-04-27 16:44] MED LIST changes: +ACET-2605 PO
[2024-04-27] MEDS ORDERED: ONDANSETRON HCL/PF 4 MG/2 ML VIAL ONE (17:16)
[2024-04-27 17:17] LABS: BASOPHILS % (AUTO) 0.4 % (0.0-2.0); EOSINOPHILS # (AUTO) 0.1 K/uL (0.0-0.7); HEMATOCRIT 38 % (33-45); LYMPHOCYTES # (AUTO) 1.6 K/uL (0.8-4.8); LYMPHOCYTES % (AUTO) 19.8 % (20.0-44.0); MEAN CORPUSCULAR HEMOGLOBIN 32 PG (26.0-33.0); MEAN CORPUSCULAR HGB CONC 35 g/dl (31.0-36.0); MEAN CORPUSCULAR VOLUME 93 fL (82-100); MONOCYTES # (AUTO) 0.8 K/uL (0.1-1.30); MONOCYTES % (AUTO) 9.7 % (2.0-12.0); NEUTROPHILS # (AUTO) 5.5 K/uL (1.8-8.9); NEUTROPHILS % (AUTO) 69.1 % (43.0-81.0); PLATELET COUNT (AUTO) 330 K/uL (150-450); RED BLOOD CELL COUNT(AUTO) 4.05 MIL/uL (4.0-5.2); RED CELL DISTRIBUTION WIDTH 14.9 % (11.5-15.0)
[2024-04-27] MEDS ORDERED: MORPHINE SULFATE INJ 4 MG/ML DISP.SYRIN ONE (17:17)
[2024-04-27] MEDS: MORPHINE SULFATE INJ 2 MG/ML DISP.SYRIN IV ONE (17:18)
[2024-04-27] MEDS: ONDANSETRON HCL/PF 4 MG/2 ML VIAL IVP ONE (17:18)
[2024-04-27 17:32] LABS: CALCIUM, SERUM 9.9 mg/dL (8.5-10.1); CARBON DIOXIDE 30 mmol/L (21-32); CHLORIDE 100 mmol/L (98-107); GLUCOSE 74 mg/dL (74-106); POTASSIUM 3.3 mmol/L (3.5-5.1); SODIUM SERUM 141 mmol/L (136-145); UREA NITROGEN, BLOOD 19 mg/dL (7-18)
[2024-04-27 17:44] LABS: NT-PRO BNP 900 pg/mL (0-125)
[2024-04-27 17:56] LABS: ALBUMIN 3.4 g/dL (3.4-5.0); BILIRUBIN,DIRECT 0.1 mg/dL (0.0-0.2); BILIRUBIN,TOTAL 0.4 mg/dL (0.2-1.0); TOTAL PROTEIN, SERUM 7.4 g/dL (6.4-8.2)
[2024-04-27] MEDS ORDERED: OMEP20CA15 PO (21:26)
[2024-04-27 21:41] VITALS: BP 110/80; TEMP 98.2; O2SAT 98
== END 2024-04-27 21:41 | disposition home or self-care (01) ==
LOC: ER 16:46
DX: R07.89 Other chest pain (principal); R10.12 Left upper quadrant pain; Z98.890 Other specified postprocedural states; Z79.899 Other long term (current) drug therapy; Z60.2 Problems related to living alone
CPT/HCPCS: 99285; 74176; 96374; 71045; 96375; 93005 ×3; 85025; 80048; 83690; 80076; 36415; 84484 ×2; 83880; J2270; J2405

== ENCOUNTER 2024-10-11 01:34 | Emergency (ER) | payer MEDICARE, BC ==
[~2024-10-11] VITALS: Ht 165.1 cm; Wt 59.9 kg
[2024-10-11 02:36] VITALS: BP 159/92; TEMP 98.2; O2SAT 98
[2024-10-11] MEDS ORDERED: ERYT3.5O9 RIGHTEYE (02:40)
== END 2024-10-11 02:48 | disposition home or self-care (01) ==
LOC: ER 01:40
DX: H00.11 Chalazion right upper eyelid (principal); G25.81 Restless legs syndrome; Z79.899 Other long term (current) drug therapy; Z88.0 Allergy status to penicillin; Z88.2 Allergy status to sulfonamides; Z98.2 Presence of cerebrospinal fluid drainage device; Z60.2 Problems related to living alone